=== PATIENT | male | born 2005 | race African-American/Black ===

== ENCOUNTER → 2025-04-12 | Emergency (ER) | payer OTHER ==
[~2025-04-12] VITALS: Ht 185.4 cm; Wt 86.4 kg
[~2025-04-12] MED LIST: ACET-2247 PO; IBUP-1492 PO
[2025-04-12 17:12] VITALS: BP 116/61; PULSE 74; RESP 18; TEMP 98.2; O2SAT 99
== END | disposition still patient (30) ==
LOC: EMS 17:00
DX: Z04.1 Encounter for examination and observation following transport accident (principal); V49.40XA Driver injured in collision with unspecified motor vehicles in traffic accident, initial encounter; Y93.89 Activity, other specified; Y92.410 Unspecified street and highway as the place of occurrence of the external cause; Y99.8 Other external cause status
CPT/HCPCS: 99283; Z7502